=== PATIENT | female | born 1995 ===

== ENCOUNTER 2017-05-18 13:14 | Emergency (ER) | payer OTHER ==
[2017-05-18] MEDS ORDERED: Sodium Chloride 0.9% 1,000 ML IV STA (16:25)
[2017-05-18] MEDS ORDERED: Sodium Chloride 0.9% 1,000 ML ONE (16:38)
[2017-05-18 17:22] LABS: BASO # 0.1 K/uL (0.0-0.2); BASO % 0.5 % (0.0-2.0); EOS # 0.1 K/uL (0.0-0.7); EOS % 0.6 % (0.0-4.0); HCG,QUALITATIVE URINE POSITIVE (NEGATIVE); HEMOGLOBIN 12.6 g/dL (11.0-16.0); LYMPH % 23.1 % (20.0-40.0); MEAN CELL VOLUME 80.6 fL (81.0-99.0); MEAN CORPUSCULAR HEMOGLOBIN 26.7 pg (27.0-31.0); MEAN CORPUSCULAR HGB CONC 33.1 g/dL (33.0-37.0); MEAN PLATELET VOLUME 7.5 fL (7.2-11.7); MONO # 0.7 K/uL (0.0-0.8); MONO % 5.4 % (0.0-10.0); NEUT # 9.2 K/uL (1.8-7.0); NEUT % 70.4 % (50.0-75.0); RBC 4.7 Mil/uL (3.80-5.20)
[2017-05-18 17:28] LABS: SQUAMOUS EPITHIAL 6 /hpf (0-5); URINE BILIRUBIN NEGATIVE (NEGATIVE); URINE CLARITY Hazy (Clear); URINE COLOR Yellow (YELLOW); URINE GLUCOSE (UA) NORMAL (Normal); URINE LEUKOCYTE ESTERASE TRACE Leu/uL (Negative); URINE NITRATE NEGATIVE (NEGATIVE); URINE PROTEIN NEGATIVE (NEGATIVE); URINE UROBILINOGEN NORMAL mg/dL (0.2-1.0)
[2017-05-18 17:29] LABS: URINE BLOOD 1+ (NEGATIVE)
[2017-05-18 17:31] LABS: INR 1.1; PROTHROMBIN TIME 12.1 SECONDS (9.7-12.2)
[2017-05-18 17:38] LABS: ALB/GLOB RATIO 1.2 (1.0-2.1); ALBUMIN 4.4 g/dL (3.5-5.0); ALT/SGPT 29 U/L (9-52); AST/SGOT 23 U/L (14-36); BLOOD UREA NITROGEN 11 mg/dL (7-17); CALCIUM 9.9 mg/dl (8.6-10.4); GFR AFRICAN-AMERICAN > 60; GFR NON-AFRICAN AMERICAN > 60
--- NOTE | 2017-05-18 18:01 | C.PDOC ---
History Of Present Illness 22yo female, reports she is 8 weeks by date, states today after she had sexual intercourse with her fiance, she had pelvic discomfort and vaginal bleeding. She states initially, the bleeding was like her menstrual period but now has subsided and is more like spotting. She also reports lower back discomfort. She denies any other medical complaint. Time Seen by Provider: 05/18/17 16:24 Chief Complaint (Nursing): Female Genitourinary History Per: Patient History/Exam Limitations: no limitations Onset/Duration Of Symptoms: Hrs Current Symptoms Are (Timing): Still Present Abnormal Vaginal Bleeding: Yes Past Medical History Reviewed: Historical Data, Nursing Documentation, Vital Signs Vital Signs: Last Vital Signs Temp 98.2 F 05/18/17 18:32 Pulse 82 05/18/17 18:32 Resp 20 05/18/17 18:32 BP 99/56 L 05/18/17 18:32 Pulse Ox 100 05/18/17 18:32 - Medical History PMH: Depression Family History: States: No Known Family Hx - Social History Hx Tobacco Use: No Hx Alcohol Use: No Hx Substance Use: No - Immunization History Hx Tetanus Toxoid Vaccination: No Hx Influenza Vaccination: Yes Hx Pneumococcal Vaccination: No Review Of Systems Except As Marked, All Systems Reviewed And Found Negative. Genitourinary: Positive for: Vaginal Bleeding Musculoskeletal: Positive for: Back Pain Physical Exam - Physical Exam Appears: Non-toxic, No Acute Distress Skin: Normal Color Neck: Supple Cardiovascular: Rhythm Regular Respiratory: Normal Breath Sounds Gastrointestinal/Abdominal: Normal Exam, Bowel Sounds, Soft, No Tenderness Back: Normal Inspection Neurological/Psych: Oriented x3, Normal Speech ED Course And Treatment - Laboratory Results Result Diagrams: 05/18/17 17:16 05/18/17 17:16 O2 Sat by Pulse Oximetry: 99 (RA) Pulse Ox Interpretation: Normal - CT Scan/US Pelvic US Other Rad Studies (CT/US): Read By Radiologist, Radiology Report Reviewed CT/US Interpretation: Accession No. : [id number]. Patient Name / ID : ROWAN HUFF / [id number]. Exam Date : 05/18/2017 17:33:39 ( Approved ). Study Comment : Sex / Age : F / 22Y. Creator : Lien Hatfield MD. Dictator : Lien Hatfield MD. 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 Approver2 : Report Date : 05/18/2017 18:13:47. My Comment : . Indication: , bleeding. Comparison: None. Technique: Real-time transabdominal pelvic ultrasound was performed. In addition a transvaginal pelvic ultrasound was necessary to better depict pelvic anatomy. Findings: The uterus measures approximately 7.9 x 5.4 x 6.1 cm. Anteverted. Cervix length measures approximately 3.1 cm. There is a single intrauterine fetus present. Question mildly irregular contour of the gestational sac. The gestational sac measures 2.4 cm and is compatible with a gestational age of 7 weeks 0 days. The crown-rump length measures 1.0 cm and is compatible with a gestational age of 7 weeks 0 days. There is heart motion which measured 133.2 BPM. The right ovary measures 2.7 x 1.9 x 2.3 cm. The left ovary measures 2.1 x 2.2 x 2.2 cm. Blood flow was demonstrated to both ovaries. Small pelvic free fluid. Impression: Live single intrauterine with estimated gestational age 7 weeks 0 days. heart rate 133.2 bpm. Question mildly irregular contour of the gestational sac. Recommend attention on follow- up. Advise an anomaly screen at 16-18 weeks gestational age. Small pelvic free fluid. Progress Note: Patient sts she feels better, no active bleeding now. Patient was given copies of all test and she was isntrucetd to f/u with OBGYN within 1- 2 days. Instructed with pelvic rest and minimal physical activity. Medical Decision Making Medical Decision Making: Impression: Vaginal bleeding in setting of Patient states she has been following up with an OB in [facility], had bloodwork done but does not have results yet. She states she has had no ultrasounds and no care as of yet. Plan: -- Labs -- IV Fluids -- US 1st trimester Disposition - Disposition Referrals: Aj Encarnacion MD [Staff Provider] - Disposition: HOME/ ROUTINE Disposition Time: 18:20 Condition: STABLE Additional Instructions: Follow up with PMD and OBGYN within 1-2 days. Return to ED if feel worse. 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 - Scribe Statement The provider has reviewed the documentation as recorded by the Scribe (Darlene Lopez) Provider Attestation: All medical record entries made by the Scribe were at my direction and personally dictated by me. I have reviewed the chart and agree that the record accurately reflects my personal performance of the history, physical exam, medical decision making, and the department course for this patient. I have also personally directed, reviewed, and agree with the discharge instructions and disposition.
--- NOTE | 2017-05-18 18:15 | US ---
Indication: , bleeding Comparison: None Technique: Real-time transabdominal pelvic ultrasound was performed. In addition a transvaginal pelvic ultrasound was necessary to better depict pelvic anatomy. Findings: The uterus measures approximately 7.9 x 5.4 x 6.1 cm. Anteverted. Cervix length measures approximately 3.1 cm. There is a single intrauterine fetus present. Question mildly irregular contour of the gestational sac. The gestational sac measures 2.4 cm and is compatible with a gestational age of 7 weeks 0 days. The crown-rump length measures 1.0 cm and is compatible with a gestational age of 7 weeks 0 days. There is heart motion which measured 133.2 BPM. The right ovary measures 2.7 x 1.9 x 2.3 cm. The left ovary measures 2.1 x 2.2 x 2.2 cm. Blood flow was demonstrated to both ovaries. Small pelvic free fluid. Impression: Live single intrauterine with estimated gestational age 7 weeks 0 days. heart rate 133.2 bpm. Question mildly irregular contour of the gestational sac. Recommend attention on follow-up. Advise an anomaly screen at 16-18 weeks gestational age. Small pelvic free fluid.
[2017-05-18 18:33] VITALS: BP 99/56; PULSE 82; RESP 20; TEMP 98.2
[2017-05-18 18:36] VITALS: O2SAT 99
== END 2017-05-18 18:33 | disposition home or self-care (01) ==
LOC: C.ER 13:14
DX: O20.0 Threatened abortion (principal); Z3A.01 Less than 8 weeks gestation of pregnancy
CPT/HCPCS: 76805; 76817; 80053; 81001; 84702; 84703; 85025; 85610; 85730; 86850; 86900; 96360; 99284; J7040

== ENCOUNTER 2017-07-29 03:50 | Emergency (ER) | payer MEDICAID, OTHER ==
--- NOTE | 2017-07-29 04:11 | C.PDOC ---
History Of Present Illness pt woke up with ruq abd pain radiating into her back ., Pt is 17 weeks , .No f/c/n/v Moderate discomfort. sharp , stabbing pain Time Seen by Provider: 07/29/17 04:10 Chief Complaint (Nursing): Female Genitourinary History Per: Patient History/Exam Limitations: no limitations Onset/Duration Of Symptoms: Hrs Current Symptoms Are (Timing): Still Present Severity: Severe Pain Scale Rating Of: 6 Quality Of Discomfort: Sharp, Cramping Associated Symptoms: denies: Fever, Chills, Nausea Recent travel outside of the [place]: No Additional History Per: Family Abnormal Vaginal Bleeding: No Past Medical History Reviewed: Historical Data, Nursing Documentation, Vital Signs Vital Signs: Last Vital Signs Temp 98 F 07/29/17 06:41 Pulse 70 07/29/17 06:41 Resp 16 07/29/17 06:41 BP 110/80 07/29/17 06:41 Pulse Ox 99 07/29/17 06:41 - Medical History PMH: Depression Family History: States: No Known Family Hx - Social History Hx Tobacco Use: No Hx Alcohol Use: No Hx Substance Use: No - Immunization History Hx Tetanus Toxoid Vaccination: No Hx Influenza Vaccination: Yes Hx Pneumococcal Vaccination: No Review Of Systems Constitutional: Negative for: Fever, Chills Cardiovascular: Negative for: Chest Pain Respiratory: Negative for: Shortness of Breath Gastrointestinal: Positive for: Abdominal Pain. Negative for: Nausea, Vomiting Genitourinary: Negative for: Dysuria Musculoskeletal: Positive for: Back Pain Skin: Negative for: Rash Neurological: Negative for: Weakness Psych: Negative for: Anxiety Physical Exam - Physical Exam Appears: Non-toxic Skin: Warm, Dry Oral Mucosa: Moist Neck: Supple Chest: Symmetrical Cardiovascular: Rhythm Regular Respiratory: No Rales, No Rhonchi, No Wheezing Gastrointestinal/Abdominal: Soft, Tenderness (ruq), Distention (gravid), No Guarding Back: Normal Inspection Extremity: Normal ROM Extremity: Bilateral: Atraumatic Pulses: Left Dorsalis Pedis: Normal, Right Dorsalis Pedis: Normal Neurological/Psych: Oriented x3, Normal Speech, Normal Cognition Gait: Steady ED Course And Treatment - Laboratory Results Result Diagrams: 07/29/17 04:25 07/29/17 04:25 O2 Sat by Pulse Oximetry: 98 Pulse Ox Interpretation: Normal Disposition Counseled Patient/Family Regarding: Studies Performed, Diagnosis - Disposition Referrals: Aj Encarnacion MD [Primary Care Provider] - Disposition Time: 04:11 Condition: FAIR Forms: [employer] (Israeli) - Clinical Impression Clinical Impression: Abdominal pain Physician Patient Turnover Patient Signed Over To: Rosario Field Handoff Comments: pending us results , re-eval and dispo
[2017-07-29] MEDS ORDERED: Sodium Chloride 0.9% 1,000 ML ONE (04:22)
[2017-07-29] MEDS: Sodium Chloride 0.9% 1,000 ML IV ONE ×2 (04:23→07:06)
[2017-07-29] MEDS ORDERED: Morphine 4 MG/ML VIAL ONE (04:28)
[2017-07-29 04:29] LABS: BASO % 0.4 % (0.0-2.0); EOS # 0.2 K/uL (0.0-0.7); EOS % 2.1 % (0.0-4.0); HEMOGLOBIN 11.5 g/dL (11.0-16.0); LYMPH # 3.7 K/uL (1.0-4.3); LYMPH % 33.1 % (20.0-40.0); MEAN CELL VOLUME 79.3 fL (81.0-99.0); MEAN CORPUSCULAR HEMOGLOBIN 26.9 pg (27.0-31.0); MEAN CORPUSCULAR HGB CONC 33.9 g/dL (33.0-37.0); MEAN PLATELET VOLUME 7.3 fL (7.2-11.7); MONO # 0.7 K/uL (0.0-0.8); MONO % 6.2 % (0.0-10.0); NEUT # 6.5 K/uL (1.8-7.0); NEUT % 58.2 % (50.0-75.0); RBC 4.28 Mil/uL (3.80-5.20); RED CELL DISTRIBUTION WIDTH 13.9 % (11.5-14.5); WHITE BLOOD COUNT 11.1 K/uL (4.8-10.8)
[2017-07-29 04:40] LABS: PROTHROMBIN TIME 11.1 SECONDS (9.7-12.2)
[2017-07-29 04:58] LABS: ALB/GLOB RATIO 1.1 (1.0-2.1); ALBUMIN 3.6 g/dL (3.5-5.0); ALT/SGPT 21 U/L (9-52); AST/SGOT 24 U/L (14-36); BLOOD UREA NITROGEN 10 mg/dL (7-17); CALCIUM 8.9 mg/dl (8.6-10.4); GFR AFRICAN-AMERICAN > 60; GFR NON-AFRICAN AMERICAN > 60
[2017-07-29 06:42] VITALS: TEMP 98
--- NOTE | 2017-07-29 07:03 | US ---
EXAM: US Uterus, Limited CLINICAL HISTORY: 22 years old, female; Pain; Other: Rt side pain; Gestational age or lmp: 17wks 6 d; ; Additional info: Vag bleed TECHNIQUE: Real-time ultrasound of the maternal uterus (limited) with image documentation. COMPARISON: US - PREG 1ST TRIMESTER/OB TV 2017-05-18 17:33 FINDINGS: Position: There is a berry fetus in the vertex presentation. Heart rate: The heart rate was measured at 144 beats per minute. Biometrics: The average ultrasound age was measured at 18 weeks and 0 days using biparietal diameter and head circumference and 17 weeks 6 days using abdominal circumference and femur length respectively. The average ultrasound gestational age is 17 weeks 6 days. organs: Stomach, cord insertion, bladder, three-vessel cord, Placenta: The placenta is anterior in location. No placenta previa. The placenta is 3.7 cm away from the internal cervical os. Amniotic fluid: There's an adequate amount of amniotic fluid. Cervix: The cervix is long and closed and measures 3.8 cm. Trace mucus or fluid in the cervical canal. Adnexa: The right maternal ovary is not seen. The left maternal ovary is not seen. IMPRESSION: No acute findings. IUP as described. Correlation with OB history, clinical evaluation and further workup or followup as recommended by patient's clinical data.
--- NOTE | 2017-07-29 07:13 | US ---
EXAM: US Abdomen Limited, Right Upper Quadrant CLINICAL HISTORY: 22 years old, female; Pain; Abdominal pain; Localized; Right upper quadrant (ruq); ; Additional info: Ruq pain TECHNIQUE: Real-time ultrasound of the right upper quadrant with image documentation. COMPARISON: No relevant prior studies available. FINDINGS: Artifacts: Limited due to bowel gas shadowing. Limited due to shadowing from the ribs. Liver: The liver measures 16.1 cm. Limited evaluation of the liver due to shadowing. There is hepatic pedal flow in the portal vein. Gallbladder: Nonspecific gallbladder distention with 2 mm gallbladder wall. Common bile duct: Normal common bile duct measuring 4 mm. No stones. No dilation. Pancreas: The pancreas is not well-seen. Mildly echogenic pancreas. Right kidney: The right kidney measures 9.8 x 5.7 x 5.2 cm. No stones. No hydronephrosis. Aorta: The the proximal aorta measures 1.4 cm. The mid and distal abdominal aorta is not well-seen. Inferior vena cava: The IVC is seen. Free fluid: Trace fluid in the Jang's pouch. Other findings: There was no right upper quadrant tenderness during the sonographic examination. Correlation with patient's pain medication status is recommended. IMPRESSION: 1. Trace fluid in the Jang's pouch.
[2017-07-29] MEDS ORDERED: Iodixanol 320 MG/ML 100 ML BOTTLE IV ONE ×2 (10:31→12:00)
--- NOTE | 2017-07-29 13:07 | CT ---
PROCEDURE: CT Chest with contrast (Pulmonary Angiogram) HISTORY: CHEST PAIN, SOB, R/O PE COMPARISON: None available. TECHNIQUE: Axial computed tomography images were obtained of the chest in the pulmonary arterial phase of enhancement. Coronal and sagittal reformatted images were created and reviewed. Please note that an initial examination proceeded with technical failure of the contrast power injector. The examination was nondiagnostic for evaluation of the pulmonary arterial system. A total of 35 cc of contrast was administered for that examination prior to the injector failure. A 2nd examination was performed with administration of 67 mL of Visipaque 320. Intravenous contrast dose: 102 cc total over 2 examinations Visipaque 320 Radiation dose: Total exam DLP = 326.41 and 452.48 mGy-cm. This CT exam was performed using one or more of the following dose reduction techniques: Automated exposure control, adjustment of the mA and/or kV according to patient size, and/or use of iterative reconstruction technique. FINDINGS: PULMONARY ARTERIES: Unremarkable. No pulmonary embolism. AORTA: No acute findings. No thoracic aortic aneurysm. LUNGS: No pulmonary infiltrate. Minimal pleural thickening at posterior right lower lobe. Calcified granuloma in superior segment right lower lobe. PLEURAL SPACES: Unremarkable. No effusion or pneuomothorax. HEART: Unremarkable. No cardiomegaly. No significant pericardial effusion. LYMPH NODES: No lymphadenopathy. Calcified right hilar lymph node consistent with old granulomatous disease. Small calcified right paratracheal node. BONES, CHEST WALL: Unremarkable. No fracture or destructive lesion OTHER FINDINGS: Nonspecific 9 mm low-attenuation lesion in the medial segment of the left hepatic lobe. IMPRESSION: No evidence of pulmonary embolism. Minor findings as above. Evidence of old granulomatous disease.
[2017-07-29 13:50] VITALS: BP 133/74; PULSE 93; RESP 20; O2SAT 100
== END 2017-07-29 13:49 | disposition home or self-care (01) ==
LOC: C.ER 03:50 → SUPCPDRO 03:50 → C.ER 13:49
DX: O26.92 Pregnancy related conditions, unspecified, second trimester (principal); Z3A.17 17 weeks gestation of pregnancy; K76.9 Liver disease, unspecified; J92.9 Pleural plaque without asbestos; R10.9 Unspecified abdominal pain
CPT/HCPCS: 71275; 76705; 76815; 80053; 84702; 85025; 85610; 85730; 86850; 86900; 96361; 96374; 99285; J2270; J7040; Q9967

== ENCOUNTER 2017-09-20 17:55 | Emergency (ER) | payer OTHER, MEDICAID ==
[2017-09-20 18:37] VITALS: BMI 28.9
[2017-09-20] MEDS ORDERED: Lactated Ringer's 1,000 ML IV ONE (18:55)
--- NOTE | 2017-09-20 19:07 | OBHP ---
Datetime: 09/20/2017 18:58 IP Adm Impression: , intrauterine Admit Comment, IP Provider: @ 25. 2 wks LMP unknown reprots receives pnc at Clinic with Dr Everardo braxton and allison work up this morning wtih sore throat and trouble with swallowing. pt prerots she went to the [place] and after 15 minutes of being in water had chills. pt rperots she got out and felt hungr y and tried to eat, and then vomiting the chicken adn rice she ate. Pt reprots after vomiting non blo reinaldo, non billious had ruq pain radiatign acorss abdomen, sharp, constat. pt denies any lof, vb, ctx, +FM. pt dnies any bowel ro baldder complaints. pt reprots sick contact of sister with flu and strep t hroat. 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: hx of ovarian cyst (no intervention) dnies hx of abnormal pap, fibroids, sti PMH: denies PSH: b/l hip surgery FHX: non contribotyr MEDS: PNV NKDA SHX: negative etoh/tobacc/drugs A/P @ 25.2 wks with fever/ruq pain r/o flu vs cholecyststis - obsterically cleared -f/u labs -ivh -tyoneol prn fever -nst -to er for evaluation Pelvic Type - PN: Adequate Extremities - PN: Normal Abdomen - PN: Abnormal Back - PN: Normal Breast - PN: Normal Lungs - PN: Normal Heart - PN: Normal Thyroid - PN: Normal Neurologic - PN: Normal HEENT - PN: Normal General - PN: Normal FHR - Baseline A Provider: 155 Comments, ACOG Physical Exam: Abd: soft, TTP RUQ, ortega sign, no guarding no reboudnd tendness, no rigidity, +BS External gentiali: no gross abnormalty Vagian: no blodo no dsicharge Cervix; clsoed, non tender Uterus; non tender Adnexa/pereinum: grossly normal Gestation - Est Wks by US: 25.2 EGA AdmitDate IP: 25.2 Vital Signs Provider: Reviewed Vital Signs Provider Details: Temp 101.3 IP Chief Complaint: Other NICHD Variability Prov Fetus A: Moderate 6-25bpm NICHD Decel Fetus A IP Provider: None Dilatation, Provider: 0 Genitourinary Exam: Normal DTRs - PN: Normal
[2017-09-20 19:33] LABS: BASO % 0.2 % (0.0-2.0); EOS # 0.1 K/uL (0.0-0.7); EOS % 0.4 % (0.0-4.0); HEMOGLOBIN 10.3 g/dL (11.0-16.0); LYMPH # 1.3 K/uL (1.0-4.3); LYMPH % 8.1 % (20.0-40.0); MEAN CELL VOLUME 77.7 fL (81.0-99.0); MEAN CORPUSCULAR HEMOGLOBIN 24.7 pg (27.0-31.0); MEAN CORPUSCULAR HGB CONC 31.8 g/dL (33.0-37.0); MEAN PLATELET VOLUME 7.1 fL (7.2-11.7); MONO # 0.9 K/uL (0.0-0.8); MONO % 5.7 % (0.0-10.0); NEUT # 13.5 K/uL (1.8-7.0); NEUT % 85.6 % (50.0-75.0); NRBC % 0.1 % (0.0-2.0); PLATELET COUNT 371 K/uL (130-400); RBC 4.18 Mil/uL (3.80-5.20); RED CELL DISTRIBUTION WIDTH 14.3 % (11.5-14.5); WHITE BLOOD COUNT 15.8 K/uL (4.8-10.8)
[2017-09-20 19:45] LABS: SQUAMOUS EPITHIAL 18 /hpf (0-5); URINE BACTERIA MOD (<OCC); URINE BILIRUBIN NEGATIVE (NEGATIVE); URINE BLOOD NEGATIVE (NEGATIVE); URINE CLARITY Hazy (Clear); URINE COLOR Yellow (YELLOW); URINE GLUCOSE (UA) NORMAL (Normal); URINE LEUKOCYTE ESTERASE 3+ Leu/uL (Negative); URINE PROTEIN 1+ mg/dL (NEGATIVE); URINE UROBILINOGEN NORMAL mg/dL (0.2-1.0)
[2017-09-20 19:52] LABS: INFLUENZA A B NEGATIVE FOR FLU A/B (NEGATIVE)
[2017-09-20 19:55] LABS: ALB/GLOB RATIO 1.1 (1.0-2.1); ALBUMIN 3.7 g/dL (3.5-5.0); ALT/SGPT 34 U/L (9-52); AMYLASE 86 U/L (30-110); AST/SGOT 27 U/L (14-36); BLOOD UREA NITROGEN 9 mg/dL (7-17); CALCIUM 8.8 mg/dl (8.6-10.4); GFR AFRICAN-AMERICAN > 60; GFR NON-AFRICAN AMERICAN > 60; LIPASE 56 U/L (23-300)
[2017-09-20 20:04] LABS: ANISOCYTOSIS SLIGHT; BANDS 2 % (0-2); HYPOCHROMIC SLIGHT; LYMPHOCYTE 11 % (20-40); MONOCYTE 5 % (0-10); NEUTROPHIL 82 % (50-75); PLATELET ESTIMATE NORMAL (NORMAL); POIKILOCYTOSIS SLIGHT; TOTAL CELLS COUNTED 100
[2017-09-20 20:05] LABS: LARGE PLATELETS PRESENT; MICROCYTOSIS SLIGHT; OVALOCYTES SLIGHT
--- NOTE | 2017-09-20 22:17 | C.PDOC ---
History Of Present Illness 22 year old female () who is 24 weeks presents to the ED c/o sore throat, fever, chills, abdominal pain and NBNB vomiting x1. Patient describes her pain as lower abdomen, RUQ with no vaginal bleeding. Patient states current time all pain are much improved. Upon arrival to the ED patient went to L&D and underwent monitoring and has been obstetrically cleared at this time. Patient then came down to the ED for further evaluation. Both influenza and rapid strep were negative upstairs. Time Seen by Provider: 09/20/17 21:56 Chief Complaint (Nursing): Fever History Per: Patient History/Exam Limitations: no limitations Onset/Duration Of Symptoms: Days Current Symptoms Are (Timing): Still Present Location Of Pain/Discomfort: RUQ, RLQ, LLQ Radiation Of Pain To:: None Quality Of Discomfort: "Pain" Associated Symptoms: Vomiting. denies: Nausea, Diarrhea, Urinary Symptoms Alleviating Factors: None Recent travel outside of the [place]: No Additional History Per: Patient Abnormal Vaginal Bleeding: No : 2 Para: 0 Past Medical History Reviewed: Historical Data, Nursing Documentation, Vital Signs Vital Signs: Last Vital Signs Temp 98.7 F 09/20/17 22:17 Pulse 102 H 09/20/17 21:15 Resp 20 09/20/17 21:15 BP 100/62 09/20/17 21:15 Pulse Ox 99 09/21/17 00:21 - Medical History PMH: Depression Surgical History: No Surg Hx Family History: States: Unknown Family Hx - Social History Hx Tobacco Use: No Hx Alcohol Use: No Hx Substance Use: No - Immunization History Hx Tetanus Toxoid Vaccination: No Hx Influenza Vaccination: Yes Hx Pneumococcal Vaccination: No Review Of Systems Except As Marked, All Systems Reviewed And Found Negative. Gastrointestinal: Positive for: Vomiting, Abdominal Pain Physical Exam - Physical Exam Additional Physical Exam Comments: Constitutional: No acute distress. Head: Normocephalic. Atraumatic. Eyes: PERRL. ENT: Moist mucous membranes. Neck: Supple. Cardiovascular: Regular rate. Radial pulse 2+ bilaterally. Chest: No tenderness. Respiratory: Clear to auscultation bilaterally. GI: Soft. RUQ tenderness, gravid uterus Back: No CVA tenderness. Musculoskeletal: No tenderness or swelling of extremities. Skin: No rash. Neurologic: Alert, no focal deficit. ED Course And Treatment - Laboratory Results Result Diagrams: 09/20/17 19:27 09/20/17 19:27 O2 Sat by Pulse Oximetry: 99 (ON RA) Pulse Ox Interpretation: Normal Medical Decision Making Medical Decision Making: Impression: 25 weeks old with abdominal pain, fever, chills, sore throat Plan: * US abdomen EXAM: US Abdomen Complete CLINICAL HISTORY: 22 years old, female; Pain; Abdominal pain; ; Additional info: Ruq pain TECHNIQUE: Real-time ultrasound of the abdomen (complete) with image documentation. COMPARISON: No relevant prior studies available. FINDINGS: Artifacts: Limited due to bowel gas shadowing. Limited due to shadowing from the ribs. Liver: Limited evaluation of the liver due to shadowing. There is hepatic pedal flow in the portal vein. Gallbladder: The gallbladder wall measures 1 mm.There was no right upper quadrant tenderness during the sonographic examination. Correlation with patient's pain medication status is recommended. No gallstones. Common bile duct: Normal common bile duct measuring 4 mm. No stones. No dilation. Pancreas: The pancreas is not well-seen. Kidneys: Mild fullness of right renal pelvis. No stones. Spleen: Unremarkable. No splenomegaly. Aorta: The aorta appears unremarkable. No aneurysm. Inferior vena cava: IVC is seen. IMPRESSION: No acute findings. Thank you for allowing us to participate in the care of your patient. Dictated and Authenticated by: Ana Blancas MD 09/21/2017 12:19 AM Eastern Time ([place] & [place]) Patient discharged, f/u PMD/OBGYN, return to ED for worsening pain, vomiting, or any other problem. Disposition - Disposition Disposition: HOME/ ROUTINE Disposition Time: 00:25 Condition: STABLE Prescriptions: Acetaminophen [Tylenol 325mg tab] 2 tab PO Q4H #30 tab Instructions: Viral Syndrome (DC) Forms: [facility] (Macedonian) - Clinical Impression Clinical Impression: Fever, - Scribe Statement The provider has reviewed the documentation as recorded by the Scribe Kulwant Arciniega All medical record entries made by the Scribe were at my direction and personally dictated by me. I have reviewed the chart and agree that the record accurately reflects my personal performance of the history, physical exam, medical decision making, and the department course for this patient. I have also personally directed, reviewed, and agree with the discharge instructions and disposition.
[2017-09-21 00:38] VITALS: O2SAT 98
[2017-09-21 04:39] VITALS: BP 84/43; PULSE 109; RESP 18; TEMP 98.9
--- NOTE | 2017-09-21 09:42 | US ---
HISTORY: RUQ pain COMPARISON: None. TECHNIQUE: Sonographic evaluation of the abdomen. FINDINGS: LIVER: Measures 15.6 cm. Normal echogenicity of the liver parenchyma. No mass. No intrahepatic bile duct dilatation. GALLBLADDER: Unremarkable. No gallstones. COMMON BILE DUCT: Measures 4 mm. No stones. No dilatation. PANCREAS: Unremarkable as visualized. No mass. No ductal dilatation. RIGHT KIDNEY: Measures 10.7cm. Normal echogenicity. No calculus, mass, or hydronephrosis. LEFT KIDNEY: Measures 10.3cm. Normal echogenicity. No calculus, mass, or hydronephrosis. SPLEEN: Normal in size and contour. No mass. AORTA: No aneurysmal dilatation. IVC: Unremarkable. OTHER FINDINGS: None. IMPRESSION: Unremarkable abdominal sonogram. Preliminary interpretation of this examination was reported by [facility] at 12:19 a.m. on 09/21/2017. There is concurrence of this report with the preliminary interpretation.
== END 2017-09-21 00:35 | disposition home or self-care (01) ==
LOC: C.EROB 17:55
DX: O26.92 Pregnancy related conditions, unspecified, second trimester (principal); R50.9 Fever, unspecified; R10.9 Unspecified abdominal pain; Z3A.25 25 weeks gestation of pregnancy
CPT/HCPCS: 76700; 80053; 81001; 82150; 83690; 85025; 87070; 87086; 87430; 87804; 96360; 99285; J7120